=== PATIENT | female | born 1950 | race Caucasian/White ===

== ENCOUNTER 2022-12-12 06:12 | Inpatient (IN) | payer MEDICARE ==
[2022-12-07 11:41] LABS: Basophils # (auto) 0 10 ^3/uL (0-0.2); Basophils % (auto) 0.7 % (0.0-2.0); Eosinophils # (auto) 0.4 10 ^3/uL (0-0.8); Eosinophils % (auto) 5.8 % (0.0-7.0); Hematocrit 41.8 % (36.0-46.0); Hemoglobin 13.7 g/dL (12.2-16.2); Lymphocytes # (auto) 2.6 10 ^3/uL (0.4-5.4); Lymphocytes % (auto) 39.6 % (10.0-50.0); Mean Corpuscular Hgb Conc. 32.7 g/dL (32.0-36.0); Mean Corpuscular Volume 94.8 fL (80.0-100.0); Monocytes # (auto) 0.7 10 ^3/uL (0-1.3); Monocytes % (auto) 10.1 % (0.0-12.0); Neutrophils # (auto) 2.9 10 ^3/uL (1.6-8.6); Neutrophils % (auto) 43.8 % (37.0-80.0); Nucleated Red Blood Cells % 0.1 %; Red Blood Cells 4.41 10^6/uL (4.0-5.20); Red Cell Distribution Width 14.3 % (11.8-14.3); White Blood Cell 6.5 10^3/uL (4.4-10.8)
[2022-12-07 11:48] LABS: Urine Bacteria FEW /hpf (None Seen); Urine Blood Negative /uL (Negative); Urine Clarity Clear (Clear); Urine Color Colorless (Yellow); Urine Protein, UAD Negative (Negative); Urine Specific Gravity 1.014 (1.001-1.035); Urine Urobilinogen Normal (Negative); Urine WBC 10 /hpf (0 - 5); Urine pH 5.5 (5.0-8.0)
[2022-12-07 11:57] LABS: INR 1.03 (0.9-1.15); Partial Thromboplastin Time 27.5 SEC (24.5-34.5); Prothrombin Time 10.8 sec (9.3-11.8)
[2022-12-07 12:39] LABS: Alanine Aminotransferase 36 U/L (7-40); Albumin 4.5 g/dL (3.2-4.8); Alkaline Phosphatase 79 U/L (46-116); Anion Gap 7.3 (5-15); Aspartate Aminotransferase 26 U/L (13-40); BUN/Creatinine Ratio 18.6 (10.0-20.0); Blood Urea Nitrogen 19 mg/dL (9-23); Calcium 9.8 mg/dL (8.5-10.1); Carbon Dioxide 27.7 mmol/L (20-30); Chloride 105 mmol/L (98-107); Glucose 104 mg/dL (74-106); Potassium 4.2 mmol/L (3.5-5.1); Sodium 140 mmol/L (136-145)
[2022-12-07 12:40] LABS: Bilirubin, Total 0.5 mg/dL (0.2-1.0); Total Protein 7.2 g/dL (5.7-8.2)
[~2022-12-12] VITALS: Ht 165.1 cm; Wt 116.3 kg
[~2022-12-12 06:12] MED LIST: ALL100T PO; ASPI1TAB20 PO; ATOR10TA52 PO; CHOL100067 PO; LOSA100T25 PO; MAGN400T40 OR; METO-159 PO; OMEP20TA PO
[2022-12-12] MEDS ORDERED: ceFAZolin 1GM/50ML 100 ML IV ONE (06:50)
[2022-12-12] MEDS ORDERED: LIDOCAINE 2% (LOCAL ANESTH.) PF 5ml SDV ONE (06:57)
[2022-12-12] MEDS ORDERED: fentaNYL CITRATE 100 MCG/2 ML VL ONE (07:34)
[2022-12-12] MEDS ORDERED: MIDAZOLAM HCL 2MG/2ML 2ml VIAL (1mg/ml) ONE (07:35)
[2022-12-12] MEDS ORDERED: fentaNYL CITRATE 5 ML ONE ×2 (07:43→07:44)
[2022-12-12] MEDS ORDERED: ROCURONIUM 10MG/ML 10ML VIAL IV ONE (08:24)
[2022-12-12] MEDS ORDERED: ACETAMINOPHEN 325 MG TAB PO PRN (09:00)
[2022-12-12] MEDS ORDERED: NITROGLYCERIN 0.4 MG SL TAB SL PRN (09:00)
[2022-12-12] MEDS ORDERED: ONDANSETRON HCL 4 MG/2 ML VIAL IV PRN ×2 (09:00→11:30)
[2022-12-12] MEDS ORDERED: MORPHINE SULFATE INJ 2 MG/ml SYRG IV PRN (09:00)
[2022-12-12] MEDS ORDERED: ePHEDrine SULFATE 50 MG/ML AMP ONE (09:35)
[2022-12-12] MEDS ORDERED: TRANEXAMIC ACID 20 ML ONE (10:54)
[2022-12-12] MEDS ORDERED: HYDROmorphone HCL 2 MG/ML VL/or syr IV PRN ×2 (11:30)
[2022-12-12] MEDS ORDERED: ONDANSETRON HCL 4 MG/2 ML VIAL ONE (11:43)
[2022-12-12] MEDS ORDERED: PROPOFOL 10 MG/ML 20 ML IV ONE (11:43)
[2022-12-12 12:03] VITALS: RESP 18; O2SAT 95
[2022-12-12] MEDS: CYCLOBENZAPRINE HCL 10 MG TAB PO SCH ×2 (12:55→21:20)
[2022-12-12] MEDS: D5W/SOD CHLO 0.9% 1,000 ML IV SCH (14:00)
[2022-12-12] MEDS: ceFAZolin 1GM/50ML 50 ML IV SCH ×2 (15:30→17:36)
[2022-12-12] MEDS ORDERED: LOSARTAN POTASSIUM 50 MG TAB PO ONE (15:45)
[2022-12-12] MEDS: DOCUSATE SOD 100 MG CAP PO SCH ×2 (17:38→21:21)
[2022-12-12 20:00] VITALS: BP 146/83; PULSE 105; PULSE 106; RESP 16; TEMP 98.3; O2SAT 96
[2022-12-12] MEDS: METOPROLOL TARTRATE 25 MG TAB PO SCH (21:20)
[2022-12-12 22:00] VITALS: BP 146/83; PULSE 105; RESP 16; TEMP 98.3; O2SAT 96
[2022-12-12] MEDS: HYDROcodone-ACET 10/325MG TAB PO PRN (23:17)
[2022-12-13] VITALS (7 sets, daily range): BP systolic 103–130; BP diastolic 54–78; PULSE 83–124; RESP 16–20; TEMP 97.5–99.1; O2SAT 91–96
[2022-12-13] MEDS ORDERED: HYDROmorphone HCL 2 MG/ML VL/or syr IV ONE
[2022-12-13] MEDS: D5W/SOD CHLO 0.9% 1,000 ML IV SCH ×3 (02:05→11:59)
[2022-12-13] MEDS: HYDROcodone-ACET 10/325MG TAB PO PRN ×2 (05:25→21:23)
[2022-12-13] MEDS: CYCLOBENZAPRINE HCL 10 MG TAB PO SCH ×3 (05:25→21:19)
[2022-12-13] MEDS: DOCUSATE SOD 100 MG CAP PO SCH ×2 (09:06→21:19)
[2022-12-13] MEDS: METOPROLOL TARTRATE 25 MG TAB PO SCH ×2 (09:06→21:19)
[2022-12-13] MEDS: FAMOTIDINE (10MG/ML) 2ML VL IV SCH (09:09)
[2022-12-13] MEDS ORDERED: LOSARTAN POTASSIUM 50 MG TAB PO SCH (10:00)
[2022-12-13] MEDS: MORPHINE SULFATE INJ 2 MG/ml SYRG IV PRN (11:57)
[2022-12-13 12:29] LABS: Chloride 106 mmol/L (98-107); Hematocrit 36.4 % (36.0-46.0); Hemoglobin 11.9 g/dL (12.2-16.2); Mean Corpuscular Hemoglobin 31.8 pg (28.0-32.0); Mean Corpuscular Hgb Conc. 32.8 g/dL (32.0-36.0); Mean Corpuscular Volume 96.8 fL (80.0-100.0); Red Blood Cells 3.76 10^6/uL (4.0-5.20); Red Cell Distribution Width 14.8 % (11.8-14.3); Sodium 138 mmol/L (136-145); White Blood Cell 9.4 10^3/uL (4.4-10.8)
[2022-12-13 12:30] LABS: Anion Gap 5.1 (5-15); Carbon Dioxide 26.9 mmol/L (20-30)
[2022-12-13 12:31] LABS: Calcium 8.8 mg/dL (8.5-10.1)
[2022-12-13 12:35] LABS: Glucose 133 mg/dL (74-106)
[2022-12-13 12:36] LABS: BUN/Creatinine Ratio 17.4 (10.0-20.0); Blood Urea Nitrogen 16 mg/dL (9-23)
[2022-12-13 12:45] LABS: Basophils % (manual) 0 (0.0-2.0); Blast Cells 0; Metamyelocytes % 0; Myelocytes % 0; Promyelocytes % 0; Reactive Lymphocytes 0
[2022-12-13 13:08] LABS: Band Neutrophils % (manual) 2; Eosinophils % (manual) 2 (0-7); Lymphocytes % (manual) 26 (10.0-50.0); Monocytes % (manual) 5 (0-12)
[2022-12-13 13:10] LABS: Platelet Estimate Adequate
[2022-12-14] VITALS (8 sets, daily range): BP systolic 98–130; BP diastolic 41–78; PULSE 89–124; RESP 18–22; TEMP 97.5–99; O2SAT 90–98
[2022-12-14] MEDS: D5W/SOD CHLO 0.9% 1,000 ML IV SCH ×2 (01:28→10:33)
[2022-12-14] MEDS: CYCLOBENZAPRINE HCL 10 MG TAB PO SCH ×3 (06:37→21:03)
[2022-12-14] MEDS: FAMOTIDINE (10MG/ML) 2ML VL IV SCH (10:07)
[2022-12-14] MEDS: DOCUSATE SOD 100 MG CAP PO SCH ×2 (10:07→21:03)
[2022-12-14] MEDS: METOPROLOL TARTRATE 25 MG TAB PO SCH (10:12)
[2022-12-14] MEDS ORDERED: ALBUTEROL SULF 2.5 MG/0.5ML(0.5%) NEB SOLN NEB PRN (10:30)
[2022-12-14] MEDS: Ensure HIGH Protein Chocolate 8oz Bottle PO SCH ×2 (12:26→18:13)
[2022-12-14] MEDS: MORPHINE SULFATE INJ 2 MG/ml SYRG IV PRN (12:43)
[2022-12-14] MEDS: HYDROcodone-ACET 10/325MG TAB PO PRN (20:09)
[2022-12-15 05:00] VITALS: BP 127/67; PULSE 107; RESP 20; TEMP 98.7; O2SAT 97
[2022-12-15] MEDS: CYCLOBENZAPRINE HCL 10 MG TAB PO SCH ×2 (06:06→14:31)
[2022-12-15] MEDS: HYDROcodone-ACET 10/325MG TAB PO PRN (06:09)
[2022-12-15 06:18] LABS: Chloride 105 mmol/L (98-107); Potassium 3.9 mmol/L (3.5-5.1); Sodium 139 mmol/L (136-145)
[2022-12-15 06:19] LABS: Anion Gap 8.8 (5-15); Carbon Dioxide 25.2 mmol/L (20-30)
[2022-12-15 06:20] LABS: Calcium 9.1 mg/dL (8.5-10.1)
[2022-12-15 06:24] LABS: Glucose 108 mg/dL (74-106)
[2022-12-15 06:25] LABS: BUN/Creatinine Ratio 11.7 (10.0-20.0); Blood Urea Nitrogen 9 mg/dL (9-23)
[2022-12-15 07:22] LABS: Basophils # (auto) 0 10 ^3/uL (0-0.2); Basophils % (auto) 0.5 % (0.0-2.0); Eosinophils # (auto) 0.1 10 ^3/uL (0-0.8); Eosinophils % (auto) 1.8 % (0.0-7.0); Hemoglobin 17.2 g/dL (12.2-16.2); Lymphocytes # (auto) 1.1 10 ^3/uL (0.4-5.4); Lymphocytes % (auto) 22.3 % (10.0-50.0); Mean Corpuscular Hemoglobin 30.5 pg (28.0-32.0); Mean Corpuscular Hgb Conc. 31.8 g/dL (32.0-36.0); Monocytes # (auto) 0.6 10 ^3/uL (0-1.3); Neutrophils # (auto) 3.2 10 ^3/uL (1.6-8.6); Neutrophils % (auto) 64.4 % (37.0-80.0); Red Blood Cells 5.63 10^6/uL (4.0-5.20); Red Cell Distribution Width 14.5 % (11.8-14.3)
[2022-12-15 08:00] VITALS: BP 130/78; PULSE 105; PULSE 124; PULSE 82; RESP 19; TEMP 97.5
[2022-12-15] MEDS: Ensure HIGH Protein Chocolate 8oz Bottle PO SCH ×2 (08:08→11:59)
[2022-12-15 09:01] VITALS: BP 116/71; PULSE 105; RESP 18; TEMP 98.1; O2SAT 89
[2022-12-15 09:55] VITALS: O2SAT 97
[2022-12-15] MEDS: FAMOTIDINE (10MG/ML) 2ML VL IV SCH (10:20)
[2022-12-15] MEDS: DOCUSATE SOD 100 MG CAP PO SCH (10:20)
[2022-12-15 12:19] LABS: Platelet Estimate Decreased
[2022-12-15 12:53] VITALS: BP 112/63; PULSE 98; RESP 18; TEMP 98.2; O2SAT 90
[2022-12-15 13:28] VITALS: BP 102/57; PULSE 93; TEMP 36.8
== END 2022-12-15 16:39 | disposition home or self-care (01) | DRG 454 ==
LOC: SUR 06:12 → TELE 08:55 → TELE-WESTW 17:07
PROVIDERS: ADMIT Orthopaedic Surgery; ATTEND Internal Medicine
PROC: 0SG0071 Fusion of Lumbar Vertebral Joint with Autologous Tissue Substitute, Posterior Approach, Posterior Column, Open Approach (ICD-10-PCS; 2022-12-12)
PROC: 01NB0ZZ Release Lumbar Nerve, Open Approach (ICD-10-PCS; 2022-12-12)
PROC: 00NX0ZZ Release Thoracic Spinal Cord, Open Approach (ICD-10-PCS; 2022-12-12)
PROC: 4A11X4G Monitoring of Peripheral Nervous Electrical Activity, Intraoperative, External Approach (ICD-10-PCS; 2022-12-12)
PROC: 0SG00AJ Fusion of Lumbar Vertebral Joint with Interbody Fusion Device, Posterior Approach, Anterior Column, Open Approach (ICD-10-PCS; principal; 2022-12-12 08:50)
DX: M48.062 Spinal stenosis, lumbar region with neurogenic claudication (principal); Z68.41 Body mass index [BMI] 40.0-44.9, adult; M10.9 Gout, unspecified; I10 Essential (primary) hypertension; E78.5 Hyperlipidemia, unspecified; E66.9 Obesity, unspecified; M43.16 Spondylolisthesis, lumbar region; M54.16 Radiculopathy, lumbar region; Z88.6 Allergy status to analgesic agent
CPT/HCPCS: 36415; 72100; 76000; 80048; 80053; 81001; 85007; 85025; 85027; 85610; 85730; 86850; 86900; 86901; 93926; 93971; 94640; 97110; 97116; 97163; 97530; G0378; J0690; J2001; J2250; J2405; J2704; J3490; J7042

== ENCOUNTER 2024-07-08 08:34 | Inpatient (IN) | payer MEDICARE ==
[2024-07-04 10:50] LABS: Urine Bacteria None Seen /hpf (None Seen)
[2024-07-04 11:17] LABS: Urine Blood Negative /uL (Negative); Urine Clarity Clear (Clear); Urine Color Light-Yellow (Yellow); Urine Protein, UAD Negative (Negative); Urine Squamous Epithelial Cell FEW /hpf (<5); Urine Urobilinogen Normal (Negative); Urine WBC 16 /HPF (0-5); Urine pH 6.5 (5.0-9.0)
[2024-07-04 11:29] LABS: Basophils # (auto) 0.1 10 ^3/uL (0-0.2); Eosinophils # (auto) 0.4 10 ^3/uL (0-0.8); Eosinophils % (auto) 6.3 % (0.0-7.0); Hematocrit 43.3 % (36.0-46.0); Hemoglobin 14.1 g/dL (12.2-16.2); Lymphocytes # (auto) 2.4 10 ^3/uL (0.4-5.4); Lymphocytes % (auto) 37.2 % (10.0-50.0); Mean Corpuscular Hemoglobin 31.8 pg (28.0-32.0); Mean Corpuscular Hgb Conc. 32.4 g/dL (32.0-36.0); Mean Corpuscular Volume 98.2 fL (80.0-100.0); Monocytes # (auto) 0.6 10 ^3/uL (0-1.3); Monocytes % (auto) 8.8 % (0.0-12.0); Neutrophils # (auto) 3.1 10 ^3/uL (1.6-8.6); Neutrophils % (auto) 46.7 % (37.0-80.0); Nucleated Red Blood Cells % 0.1 %; Platelet Count (auto) 212 10^3/uL (140-450); Red Blood Cells 4.41 10^6/uL (4.0-5.20); Red Cell Distribution Width 15.3 % (11.8-14.3); White Blood Cell 6.6 10^3/uL (4.4-10.8)
[2024-07-04 11:33] LABS: INR 1.03 (0.9-1.15); Partial Thromboplastin Time 26.6 SEC (24.5-34.5); Prothrombin Time 10.9 sec (9.3-11.8)
[2024-07-04 12:19] LABS: Albumin 4.7 g/dL (3.2-4.8); Alkaline Phosphatase 86 U/L (46-116); Anion Gap 10 (5-15); Aspartate Aminotransferase 35 U/L (13-40); Bilirubin, Total 0.5 mg/dL (0.2-1.0); Blood Urea Nitrogen 19 mg/dL (9-23); Carbon Dioxide 28 mmol/L (20-31); Chloride 105 mmol/L (98-107); Glucose 104 mg/dL (74-106); Potassium 4.3 mmol/L (3.5-5.1); Sodium 143 mmol/L (136-145); Total Protein 7.3 g/dL (5.7-8.2)
[2024-07-04 12:22] LABS: Alanine Aminotransferase 44 U/L (7-40); Calcium 10.4 mg/dL (8.7-10.4)
[~2024-07-08] VITALS: Ht 170.2 cm; Wt 101.2 kg
[~2024-07-08 08:34] MED LIST changes: -ALL100T PO; +ALL300T PO; +ASCOCRY2 OR; +GABA-1250 PO; +METH50006 SL; -METO-159 PO; +METO-289 PO; +METO1TAB9 PO
[2024-07-08] MEDS ORDERED: ceFAZolin 2 GM/D5W100ml 100 ML IV ONE (08:46)
[2024-07-08] MEDS ORDERED: DexAMETHasone SOD PHOS 10MG/1ML VIAL INJ ONE (10:51)
[2024-07-08] MEDS ORDERED: GLYCOPYRROLATE 0.2 MG/ML 1ML VIAL ONE (10:51)
[2024-07-08] MEDS ORDERED: ONDANSETRON HCL 4 MG/2 ML VIAL ONE (10:51)
[2024-07-08] MEDS ORDERED: ROCURONIUM 10MG/ML 10ML VIAL IV ONE (10:52)
[2024-07-08] MEDS ORDERED: fentaNYL CITRATE 100 MCG/2 ML VL ONE (10:52)
[2024-07-08] MEDS ORDERED: KETAMINE 50mg/ML 1ml syringe ONE ×2 (10:52→13:44)
[2024-07-08] MEDS ORDERED: PROPOFOL 10 MG/ML 20 ML IV ONE ×2 (10:52→13:50)
[2024-07-08] MEDS ORDERED: SODIUM CHLORIDE LOCK 10 ML ONE ×3 (10:52→13:44)
--- NOTE | 2024-07-08 11:13 | DVHHP2 ---
"Admitting Diagnosis: cervical spinal stenosis with severe radicular pain and progressive neuro deficit History of Present Illness Home Meds Reported Medications Ascorbic Acid (Celia-C) Cry, 1000 OR, CRY 07/01/24 Mecobalamin (B12) 5,000 Mcg Sub, 5000 MCG SL DAILY, INJ 07/01/24 Gabapentin (Gabapentin) 300 Mg Cap, 300 MG PO BID for 30 Days, MG 07/01/24 Metoprolol Succinate (Metoprolol Succinate Er) 50 Mg Tab, 50 MG PO HS for 30 Days, MG 07/01/24 Metoprolol Succinate (Metoprolol Succinate Er) 100 Mg Tab, 100 MG PO QAM, TAB 07/01/24 Allopurinol (ZYLOPRIM TABLET) 300 Mg Tb, 300 MG PO, TAB 07/01/24 Cholecalciferol (D3) 250 Mcg Cap, 125 MCG PO, CAP 12/07/22 Magnesium Oxide (MAGNESIUM OXIDE) 400 Mg Tab, 400 MG OR DAILY, TAB 12/07/22 Aspirin (Aspir-81) 81 Mg Tab, 81 MG PO DAILY, TAB 12/07/22 Atorvastatin Calcium (ATORVASTATIN CALCIUM) 10 Mg Tab, 10 MG PO DAILY, TAB 12/07/22 Omeprazole (Gnp Omeprazole) 20 Mg Tab, 40 MG PO DAILY, TAB 12/07/22 Losartan Potassium & Hydrochlo (Hyzaar) 1 Tab Tab, 1 TAB PO DAILY, TAB 12/07/22 Discontinued Reported Medications Allopurinol (ZYLOPRIM TABLET) 100 Mg Tb, 100 MG PO DAILY, TAB 12/07/22 Timing/Duration of Neck Pain: Changing over time Quality of Neck Pain: Aching, Burning, Cramping Neck Pain Radiation: Upper extremity Method of Injury/Prior Factors: Unknown Modifying Factors for Neck Geovanna: None Associated Symptoms of Neck Pa: Muscle spasms, Numbness in upper extremi, Numbness in fingers, Tingling in upper extremi, Tingling in fingers, Sensory loss, Motor loss Past Medical History Patient Family History: Diabetes mellitus G8 MOTHER Review of Systems Constitutional: No symptom reported Ears, Nose, & Throat: No symptom reported Eyes: No symptom reported Pulmonary/Respiratory: No symptom reported Cardiovascular: No symptom reported Gastrointestinal: No symptom reported Genitourinary: No symptom reported Musculoskeletal: Neck pain, Arm pain Skin: No symptom reported Psychiatric: No symptom reported Endocrine: No symptom reported Hemotologic/Lymphatic: No symptom reported H&P Exam Vital Signs Vital Signs Date Time Temp Pulse Resp B/P (MAP) Pulse Ox O2 Delivery O2 Flow Rate FiO2 07/08/24 08:44 97.1 88 20 148/88 (108) 94 97.1 General Appeara: Well developed, Well nourished, Normal Appearance Head Exam: Normal inspection Neck Exam: Normal inspection, Non-tender, Normal alignment Eye Exam: bilateral eye Normal inspection, bilateral eye PERRL, bilateral eye EOMI Ear Exam: bilateral ear Auricle normal, bilateral ear Canal normal, bilateral ear TM normal Nasal Exam: Normal inspection Mouth: Normal Inspection Pulmonary/Respiratory: Normal inspection, Normal breath sounds, Chest non- tender, Lungs clear Cardiovascular/Chest: Normal inspection, Regular rate, Normal Rhythm Abdominal Exam: Normal bowel sounds, Soft, No tenderness, No hepatospenomegaly, No masses Rectal Exam: Deferred Back Exam: Normal inspection Pelvic Exam: Not done Male Genital Exam: Not done Shoulder Exam: Normal inspection, Non-tender, Normal ROM Elbow/Forearm Exam: Normal inspection, Non-tender, Normal ROM Wrist Exam: Normal inspection, Non-tender, Normal ROM Hand Exam: Normal inspection Hip exam: Normal inspection, Non-tender, Normal range of motion Legs: bilateral leg non-tender, bilateral leg normal inspection, bilateral leg normal range of motion, bilateral leg no evidence of injury Knees: bilateral knee non-tender, bilateral knee normal inspection, bilateral knee normal range of motion, bilateral knee no evidence of injury Ankle Exam: bilateral ankle Normal inspection, bilateral ankle Non-tender, bila teral ankle Normal range of motion, bilateral ankle No evidence of injury Foot: bilateral foot non-tender, bilateral foot normal inspection, bilateral foot normal range of motion, bilateral foot no evidence of injury Tendon/ Neuro: Motor deficit, Sensory deficit ASSEMBLER Exam: Normal hearing, Normal speech, PERRL Motor/Sensory: Weak motor strength RUE, Weak motor strength LUE, Weak motor strength RLE, Weak motor strength LLE Appearance: Appropriate appearance Eye contact/ Speech: Cooperative Thoughts/Psych: Normal thought pattern Coordination/Gait: Abnormal gait Skin Exam: Normal inspection, Normal color, Warm/dry Lymphatic: Normal inspection Labs/Xrays Radiology Report Patient Details Exam Details SIEGEL ADRIAN MR CERVICAL SPINE W/O Date of Gender Exam Date FEMALE 02/26/2022 [id number] [facility] Rec # Ordering Provider Interpreting Provider [id number] [facility] CLINICAL HISTORY: 723.1 Comparison: MR LUMBAR SPINE WO on DOS: 11/08/23 Technique: Multi planar, multi sequence MR images of the cervical spine without intravenous contrast. FINDINGS: The cervical spinal cord demonstrates normal caliber and signal. The visualized posterior fossa contents appear unremarkable. The craniocervical junction is within normal limits. The vertebral body heights and bone marrow signal are appropriate. There is straightening of the cervical lordosis. There is disc desiccation throughout. There is multilevel disc space narrowing, worse at C5-C6 and C6-C7. At C2-C3 there is bilateral facet arthropathy, [id number]-right. There is no canal or significant foraminal stenosis. At C3-C4 there is posterior disc osteophyte complex and bilateral uncovertebral arthropathy, [id number]- left. There is bilateral facet arthropathy, [id number]-left. There is no significant spinal canal stenosis. There is moderate right neural foraminal stenosis. At C4-C5 there is bilateral facet arthropathy and mild disc bulge. There is no spinal canal or significant foraminal stenosis. At C5-C6 there is posterior disc osteophyte complex and bilateral uncovertebral arthropathy. There is no significant spinal canal stenosis. There is moderate bilateral neural foraminal stenosis, right greater than left. At C6-C7 there is posterior disc osteophyte complex and bilateral uncovertebral arthropathy. There is no significant spinal canal stenosis. There is moderate bilateral neural foraminal stenosis. At C7-T1 there is bilateral facet arthropathy with slight grade 1 anterolisthesis of C7 on T1. There is posterior disc bulge without canal stenosis. There is mild bilateral neural foraminal stenosis. IMPRESSION: [facility] [id number], [address] [place] [address] | Confidential information intended for patient chart only Page 2 of 2 1. Straightening of the cervical spine with multilevel degenerative changes as described by levels above. There is no significant spinal canal stenosis. 2. Moderate bilateral neural foraminal stenosis at C5-C6 and C6-C7. HS:Y Labs Test 07/04/24 10:15 Range/Units White Blood Count 6.6 4.4-10.8 10^3/uL Red Blood Count 4.41 4.0-5.20 10^6/uL Hemoglobin 14.1 12.2-16.2 g/dL Hematocrit 43.3 36.0-46.0 % Mean Corpuscular Volume 98.2 80.0-100.0 fL Mean Corpuscular Hemoglobin 31.8 28.0-32.0 pg Mean Corpuscular Hemoglobin Concent 32.4 32.0-36.0 g/dL Red Cell Distribution Width 15.3 H 11.8-14.3 % Platelet Count 212 140-450 10^3/uL Mean Platelet Volume 9.1 6.9-10.8 fL Neutrophils (%) (Auto) 46.7 37.0-80.0 % Lymphocytes (%) (Auto) 37.2 10.0-50.0 % Monocytes (%) (Auto) 8.8 0.0-12.0 % Eosinophils (%) (Auto) 6.3 0.0-7.0 % Basophils (%) (Auto) 1.0 0.0-2.0 % Neutrophils # (Auto) 3.1 1.6-8.6 10 ^3/uL Lymphocytes # (Auto) 2.4 0.4-5.4 10 ^3/uL Monocytes # (Auto) 0.6 0-1.3 10 ^3/uL Eosinophils # (Auto) 0.4 0-0.8 10 ^3/uL Basophils # (Auto) 0.1 0-0.2 10 ^3/uL Nucleated Red Blood Cells 0.1 % Prothrombin Time 10.9 9.3-11.8 sec Prothrombin Time INR 1.03 0.9-1.15 Activated Partial Thromboplast Time 26.6 24.5-34.5 SEC Urine Color Light-yellow Yellow Urine Clarity Clear Clear Urine pH 6.5 5.0-9.0 Urine Specific [place] 1.020 1.001-1.035 Urine Protein Negative Negative Urine Ketones Negative Negative Urine Blood Negative Negative /uL Urine Nitrite Negative Negative Urine Bilirubin Negative Negative Urine Urobilinogen Normal Negative mg/dL Urine Leukocyte Esterase 2+ Negative /uL Urine RBC <1 0 - 4 /hpf Urine Microscopic WBC 16 H 0-5 /HPF Urine Squamous Epithelial Cells Few <5 /hpf Urine Bacteria None seen None Seen /hpf Urine Glucose Normal Normal mg/dL Sodium Level 143 136-145 mmol/L Potassium Level 4.3 3.5-5.1 mmol/L Chloride Level 105 98-107 mmol/L Carbon Dioxide Level 28 20-31 mmol/L Anion Gap 10 5-15 Blood Urea Nitrogen 19 9-23 mg/dL Creatinine 1.27 H 0.550-1.02 mg/dL Glomerular Filtration Rate Calc 45 >90 mL/min BUN/Creatinine Ratio 15.0 10.0-20.0 Serum Glucose 104 74-106 mg/dL Calcium Level 10.4 8.7-10.4 mg/dL Total Bilirubin 0.5 0.2-1.0 mg/dL Aspartate Amino Transferase (AST) 35 13-40 U/L Alanine Aminotransferase (ALT) 44 H 7-40 U/L Alkaline Phosphatase 86 46-116 U/L Total Protein 7.3 5.7-8.2 g/dL Albumin 4.7 3.2-4.8 g/dL Assessment/Plan Primary Diagnosis cervical spinal stenosis Plan admit for elective spine surgery Plan discussed with: Patient TEMITOPE SHEPARD MD Jul 08, 2024 11:13"
[2024-07-08] MEDS ORDERED: oxyCODONE ER 10 MG TAB PO ONE (11:37)
[2024-07-08] MEDS ORDERED: ACETAMINOPHEN IV 100 ML IV ONE (11:37)
[2024-07-08] MEDS ORDERED: GABAPENTIN 300 MG CAP ONE (11:37)
[2024-07-08] MEDS ORDERED: TRANEXAMIC ACID 20 ML ONE (11:45)
[2024-07-08] MEDS: ACETAMINOPHEN IV 1000 MG/100ML (10MG/ML) IV ONE (11:46)
[2024-07-08] MEDS: oxyCODONE ER 10 MG TAB PO ONE (11:46)
[2024-07-08] MEDS: GABAPENTIN 300 MG CAP PO ONE (11:46)
[2024-07-08] MEDS ORDERED: MAGNESIUM SULFATE 1GM/100ML 100 ML IV ONE (11:58)
[2024-07-08] MEDS ORDERED: LIDOCAINE 4MG/ML IV SOLN 500 ML IV ONE (12:12)
--- NOTE | 2024-07-08 14:35 | DVHOP2 ---
Operative Report - 2 Report Details Date: 07/08/24 Preop Diagnosis: cervical spinal stenosis/degenerative disc disease with severe radiculopathy Postop Diagnosis: same Surgeon: Vernon Villalpando MD Clinical Rn Manager: Santa Drew NP Anesthesiologist: Hannah Gilliam CRNA Anesthesia: General Consent: The patient was informed of the risks and benefits of the procedure. These include but are not limited to complications of anesthesia, postoperative infection, incomplete relief of symptoms, recurrence of symptoms, damage to blood vessels, nerves and tendons, deep venous thrombosis, pulmonary embolism and possible need for repeat surgery in the future. Name of Procedure Performed see detailed note Procedure Details Procedure Details: Pre Op Diagnosis: Cervical Degenerative Disk Disease most severe at C4/5,6/7, 6/7 and Spinal Stenosis Causing incapacitating neck pain, radiculopathy and progressive neurologic deficit Post Op Diagnosis: Cervical Degenerative Disk Disease most severe at c4/5, 5/6, 6/7 and Spinal Stenosis Causing incapacitating neck pain, radiculopathy and progressive neurologic deficit Procedure: Cervical 4 to 5 anterior cervical discectomy with Cervical 4-5 foraminotomies and facetectomies to decompression the spinal canal and Cervical 5 nerve roots Cervical 5 to 6 anterior cervical discectomy with Cervical 5/6 foraminotomies and facetectomies to decompression the spinal canal and Cervical 6 nerve roots Cervical 6 to 7 anterior cervical discectomy with Cervical 6/7 foraminotomies and facetectomies to decompression the spinal canal and Cervical 7 nerve roots Cervical 4-7 anterior cervical Fusion Cervical 4-7 anterior cervical instrumentation with freestanding cages Cervical 4-5 placement of allograft prosthetic device Cervical 5-6 placement of allograft prosthetic device Cervical 6-7 placement of allograft prosthetic device Surgeon: Vernon Villalpando MD Anesthesia: General Assist: Santa Drew NP Fluids and EBL: see anesthesia note Procedure Note: The patient was seen in the Pre-anesthesia Care Unit and the site of the incision was initialed by me with a felt tipped marker. All questions by the patient were answered to the satisfaction of the patient and the chart was reviewed. The patient was taken to the operating room and placed supine on the [facility] top table. General anesthesia was induced. Neuromonitoring leads were placed. A rolled towel was placed between the shoulder blades to hyperextend out the chest which will allow better exposure of the cervical spine. Halter traction to 10 pounds was placed. The arms were padded and adducted to the patients side making sure all pulses in the hands were present. Tape traction was undertaken on the shoulders to give us better radiographic exposure of the distal cervical spine. A gel-pad was placed under the occiput and 5 degrees of extension was placed on the neck without adverse effects to the patient. The anterior neck was prepped and draped. Pre-operative antibiotics were given 30 minutes prior to the start of the proced ure. A c-arm fluoroscope was used to josiah out the incision site. At this time, a time out was taken per usual protocol. Next an incison was made through the skin with a 15 blade scalpel through the subcutaneous tissue down to the platysma. Self-retainers were placed. The platysma was incised along the longitudinal border with a Metzenbaum scissors. Blunt dissection was made through the deep cervical and pre-tracheal fascia taking care to protect the carotid sheath laterally and the Trachea/esophagus medially. The dissection was carried down to the prevertebral fascia. Any crossing vessels were ligated using a vascular clip or coagulated with a bovie. An esophageal retractor was next used to retract the trachea/esophagus and a bent [address] through the anterior annulus of the cervical disk and a lateral C-arm fluoroscopic image was taken to confirm that we were at the correct level. The patient had a large thick neck making the exposure deep and more challenging than average. Next, bovie electrocautery was used to expose the bones of cervical 4,5,6, and 7 and bipolar electrocuatery was used to lift up the Longus Colli and Capitus muscles. Black-Belt Self Retainers were used to retract the longus colli and capitus muscles bilaterally as well as the trachea/esophagus to the right and the carotid sheath to the left. Smooth thin self raining retractors were placed proximally and distally and a needle was placed again in the anterior annulus of the disk and an image taken to confirm the correct level. The bleeding was more excessive than average due tot he requirement to remove bone spurs At this point, an 11 blade scalpel incised the anterior annulus of the first of the 3 levels. Next, straight and curved curettes removed the remainder of the disks all the way down to the posterior longitudinal ligament. Carefully, a Bob carrillo one rongeur inscised the posterior longitudinal ligament at the lateral end of the cervical 4/5 an 5/6 and 6/7 disks and using a micro, blunt tip nerve hook to separate the posterior longitudinal ligament from the dura, alternating 1 mm and 2 mm Kerison rongeurs removed the posterior longitudinal ligament. Next, Kerison 1mm and 2 mm rongeurs were alternated to get under the uncinate processes and undercut them to perform foraminotomies and factectomies at these levels to decompress the central canal and the cervical 5,6 and 7 nerve roots respectively. Next the c-arm fluoroscope was wheeled into the field and a lateral image was obtained. Increasing size graft trials were used starting at a 5 mm thick size until the proper tension in the disk space and height bahai obtained. Next we placed the free standing inter body devices at feliz of the 3 levels respectively. The sizes were tailored to make sure proper tension was restored in the ligaments without over tensioning. Satisfactory placement was confirmed in the AP and lateral views using a C-arm fluoroscope. Copious irrigation of the wound with sterile saline and all bleeding was controlled before closure initiated. At this point, a 10 [place] Islander round Ivan Drain was place deep to the Platysma muscle and the Platysma was approximated with one interrupted 0-Vicryl suture. The subcutaneous tissue was closed with interrupted 2-0 vicryl sutures and the skin was closed with yunier. Sterile dressings were placed and a cervical collar placed, the patient extubated, transferred to the stretcher and taken to the Recovery Room in unremarkable condition. Other Notes:Please note that the patient had a large fatty layer in the neck making the exposure very deep. There were multiple crossing veins in the pretracheal fascia that needed to be tied off with 2-0 silk. Condition Stable Disposition Still a Patient VERNON VILLALPANDO MD Jul 08, 2024 14:35
[2024-07-08 14:48] VITALS: PULSE 86; RESP 11; O2SAT 98
--- NOTE | 2024-07-08 14:50 | DVH ---
C-ARM FLUOROSCOPY: PROCEDURE: c4-c7 fusion FLUOROSCOPY TIME: 58.8 sec DAP: 24 mgy FINDINGS: Spot intraoperative C arm radiographs demonstrating c4-c7 fusion. IMPRESSION: Please refer to surgical report for detailed findings.
[2024-07-08] MEDS: hydrALAZINE HCL 20 MG/ML VL IV ONE ×2 (14:55→15:05)
[2024-07-08] MEDS ORDERED: hydrALAZINE HCL 20 MG/ML VL ONE (15:00)
[2024-07-08] MEDS ORDERED: HYDROmorphone HCL 2 MG/ML VL/or syr IV PRN (15:00)
[2024-07-08] MEDS ORDERED: NALOXONE HCL 0.4 MG/ML VIAL IV PRN (15:00)
[2024-07-08] MEDS ORDERED: ePHEDrine SULFATE 50 MG/ML AMP IV PRN (15:00)
[2024-07-08] MEDS ORDERED: fentaNYL CITRATE 100 MCG/2 ML VL IV PRN (15:00)
[2024-07-08] MEDS ORDERED: hydrALAZINE HCL 20 MG/ML VL IV PRN (15:00)
[2024-07-08] MEDS ORDERED: FLUMAZENIL 0.1 MG/ML INJ 10ML MDV IV PRN (15:00)
[2024-07-08] MEDS ORDERED: ONDANSETRON HCL 4 MG/2 ML VIAL IV PRN (15:00)
[2024-07-08] MEDS ORDERED: MORPHINE SULFATE INJ 2 MG/ml SYRG IV PRN (16:45)
[2024-07-08] MEDS ORDERED: NITROGLYCERIN 0.4 MG SL TAB SL PRN (16:45)
[2024-07-08 17:00] VITALS: BP 155/74; PULSE 90; RESP 18; TEMP 97.6; O2SAT 91
[2024-07-08 20:00] VITALS: PULSE 84; PULSE 86; RESP 18; O2SAT 92
[2024-07-08 21:00] VITALS: BP 157/70; PULSE 86; RESP 18; TEMP 98; O2SAT 92
[2024-07-08] MEDS: oxyCODONE HCL 5MG TAB PO PRN (22:15)
[2024-07-09] VITALS (8 sets, daily range): BP systolic 129–156; BP diastolic 60–73; PULSE 75–105; RESP 17–20; TEMP 97.4–97.8; O2SAT 88–94
--- NOTE | 2024-07-09 07:08 | DVHPN2 ---
Progress Note - Surgical Date Seen: Jul 09, 2024 Post op day Post op day: 1 Subjective Patient reports: No new complaints, Feels better, Other (Patient doing surprisingly well considering she has only had one oral pain medication since surgery.) Review of Systems: HEENT:Normal, CVS:Normal, RESPIRATORY:Normal, GI:Normal, :Normal, MSK:Normal, NEURO:Normal (Patient states she is having some occipital pain however that may be due to the harvesting system used in surgery to maintain immobilization admission should get better in time) Objective Vital signs Vital Sign Date Time Temp Pulse Resp B/P (MAP) Pulse Ox O2 Delivery O2 Flow Rate FiO2 07/09/24 05:00 97.8 82 18 130/60 (83) 94 97.8 07/08/24 20:00 Nasal Cannula* 1 24 Total Intake and Output 07/08/24 07/08/24 07/09/24 15:00 23:00 07:00 Intake Total 1010 ml 0 ml 300 ml Output Total 10 ml Balance 1000 ml 0 ml 300 ml Medications Current Medications Medications Dose Ordered Sig/Suzette Route Start Time Stop Time Status Last Admin Dose Admin Oxycodone HCl 10 mg ONCE PRN PO 07/08/24 15:00 07/08/24 22:15 10 MG Nitroglycerin 0.4 mg Q5MINP PRN SL 07/08/24 16:45 Morphine Sulfate 2 mg Q30M PRN IV 07/08/24 16:45 Laboratory Laboratory Tests 07/04/24 10:15 Test 07/04/24 10:15 Range/Units Serum Glucose 104 74-106 mg/dL Examination: GENERAL:Normal, HEENT:Normal, NECK:Normal, LUNGS:Normal, CVS:Normal, ABDOMEN:Normal, MSK:Normal (Patient is demonstrating normal range of motion), SKIN:Normal (In her neck wound is well approximated with yunier, drain is intact, it was removed with scant drainage. There may be residual drainage for the next 2-3 days patient verbalized understanding), NEURO:Normal (Patient moving bilateral upper extremities independently with good strength), :Normal Problem List/Assessment/Plan Problems: (1) Muscle spasms of neck (2) Postoperative pain after spinal surgery Assessment and Plan Disposition: -Pending -Discharge RX: Pending -Follow up appointment: with Dr Villalpando , keep your appointment as scheduled [id number] [place] [address] -Pain: - IV pain meds post op day 1, with PO supplementation, goal is to progress weaning off IV medications and control pain with PO only. morphine 1mg q 4 hours (PAIN 7-10) - P.O. analgesics:Tylenol 650MG (PAIN 1-3) [place] 10/325 mg (PAIN 4-6) - Muscle relaxers scheduled administration. This is a beneficial medications for the incisional pain as it is mostly related to muscle spasms. Flexeril 10 mg TID - Cepacol throat lozenges as needed for sore throat -Antibiotics Operative recommendations: -Postoperative dose:-Post operative antibiotics cefazolin 1 g IV piggyback every 8 hours x 48 hours total of 6 doses -DVT PPX: -Hold all chemical DVT/ blood thinners for 14 days postoperatively -use mechanical DVT PPX such as SCD's, ambulation -Activity: -Pending PT evaluation and patients progression -Sit at side of bed for meals -Goal: Ambulate independently and safely (may use assistive devices if needed) -Brace: - [place] collar for comfort, -Medical Therapy goals: -Afebrile- Patient may develop a expected post operative fever by day 2-3, this may not be accompanied with a elevation in WBC. if fever develops: Acetaminophen for fever. Albuterol nebulizer Tx every 12 hours for 24 hours to facilitate adequate lung expansion and prevent development of atelectasis. -Euglycemic: bloods sugars under 130mmol/L for optimal healing -Normotensive: Avoid events of hypertension. This helps to keep post operative healing intact and avoids destabilization of beneficial hemostatic coagulation. Drains -Bulb drains: record output and characteristics of the drainage EVERY 6 HOURS- if there is no output indicate this by documenting 0ml output in note.. These will be to thumbprint compression unless otherwise ordered. Record output as well as amount in a note at least every 6 houtrs- more if indicated. Wound drainage is described by type, color, amount, and odor. Drainage can be 1 serous: Clear and thin, may be present in healing healthy wound. 2 serosanguineous containing blood may also be present and healthy healing wound 3. Sanguinous primarily blood 4. Purulent this is thick, white, and pus like. It may be indicated to give of a infection and should constitute a call to the provider immediately with the plan that the sample should be cultured. -Keenan: -DC in OR -Dressings -Anterior cervical patients: Initial surgical dressing may be reinforced if needed. If there is excessive bleeding, leaking, drainage in the bulb drain notify provider -Bowel management: -Colace 100mg bid -Diet: -Clear liquid diet and advance as patient tolerates within dietary limitations ( example: diabetic, Cardiac) -Incentive Spirometer: -10 x hour while awake, RN please educate and observe repeat demonstration, have IS at bedside POD #1 -X-rays: - none indicated at this time -Consults: -Physical Therapy evaluation, treatment recommendations, and discharge recommendations Call with questions Marquis Drew ACNP- Orthopaedic Spine Surgery nurse practitioner For Dr Reid Villalpando Patient was examined, chart reviewed, labs evaluated, and diagnostic studies and findings analyzed. Case was discussed with Dr. Vernon Villalpando who formulated the plan of care. Plan discussed with Plan discussed with: Patient, Other (Melanie extension [phone]) Visit Coding Surgery Date of Service if different f: Jul 09, 2024 Billing Provider: BRONSON DREW NP Surgery Visit Codes: NOT BILLABLE BRONSNO DREW NP Jul 09, 2024 07:08
[2024-07-09 10:49] LABS: Chloride 102 mmol/L (98-107); Potassium 4.5 mmol/L (3.5-5.1); Sodium 137 mmol/L (136-145)
[2024-07-09 10:50] LABS: Anion Gap 9 (5-15); Carbon Dioxide 26 mmol/L (20-31)
[2024-07-09 10:55] LABS: BUN/Creatinine Ratio 19.6 (10.0-20.0); Blood Urea Nitrogen 19 mg/dL (9-23)
[2024-07-09 10:56] LABS: Glucose 132 mg/dL (74-106)
[2024-07-09] MEDS ORDERED: OXY5T PO (13:37)
[2024-07-09] MEDS ORDERED: CYCL-611 PO (13:37)
--- NOTE | 2024-07-09 13:43 | DVHDS2 ---
ASSESSMENT ASSESSMENT Hospital Course The patient arrived for a elective spine surgery with Dr. VILLALPANDO. Surgery went as planned with no complications. After a short stay in the PACU patient was admitted to the hospital for postoperative care and pain management over the course of 1 postoperative days the patient was able to tolerate a diet, ambulate independently, the pain has been managed with oral analgesics. The surgical site is well-approximated with yunier some residual drainage continues from drain insertion sites after removal, however it is manageable with daily wound care and dressing changes. Some improvement to preoperative symptoms of extremities, strength and motion. There is new post operative pain that is localized to the surgical site. The patient will follow-up with Dr. Villalpando for wound check and suture check or staple removal. The patient may use Lea J collar /TLSO / Soft collar for comfort and while mobilizing. You may shower and let the water run over your neck wound however you must pat it dry with sterile 4x4s gauze. Please do not use regular household towels. Keep your incision covered when you are out of your house or when you are wearing clothing that rub on your incision. He will also do not want to have a seatbelt rubbing on your incision. If you are at home and you have clothing that does not contact your incision you may leave it open to air. You may have some residual drainage from the drain site for the next 2-3 days which is normal it should be a very light pink or cathy color fluid. If it changes or becomes bright red please call 911. Assessment same Problems: (1) Cervical stenosis of spinal canal Assessments: Resolved with spine surgery which has been completed (2) Muscle spasms of neck Assessments: Prescription for muscle relaxers-acute phase of healing (3) Postoperative pain after spinal surgery Assessments: Prescription for oral analgesia-acute phase of healing BRONSON VALDEZ NP Jul 09, 2024 13:43
[2024-07-09] MEDS: CYCLOBENZAPRINE HCL 10 MG TAB PO SCH (14:08)
--- NOTE | 2024-07-09 16:40 | DVHHPRES ---
History of Present Illness Resident Creating Document: WADE ALFLEUR RESIDENT History of Present Illness This is a 74-year-old female who come in for radicular pain. She has a past medical history relevant for hypertension, gout, dyslipidemia, GERD. She stated that for the last six months she has been experiencing worsening radicular pain, she states having a history of cervical spinal stenosis with severe radicular pain and progressive neuro deficit. She was seen by Dr. Villalpando whom scheduled her for an elective surgery for her cervical spine. On my initial assessment, patient was seen and examined at bedside. Currently states feeling well, denies any significant shortness of breath, chest pain, abdominal pain, dysuria, nausea, vomiting, diarrhea, constipation, dizziness, lightheadedness. Currently tolerating diet. Patient underwent cervical spine surgery today, she just states having soreness on the anterior neck, she also states having some pain on swallowing. However patient did tolerated the diet well and she was progressed to regular diet. Patient is going to have physical therapy today, and we will continue to monitor her. Smoke: No ALCOHOL: none Drugs: None Lives: with Family Review of Systems Review of Systems Constitutional: Patient denies fevers, chills, sweats and weight changes. Eyes: Patient denies any visual symptoms. Ears, Nose, and Throat: No difficulties with hearing. No symptoms of rhinitis or sore throat. Cardiovascular: Patient denies chest pains, palpitations, orthopnea and paroxysmal nocturnal dyspnea. Respiratory: No dyspnea on exertion, no wheezing or cough. GI: No nausea, vomiting, diarrhea, constipation, abdominal pain, hematochezia or melena. Dysphagia : No urinary hesitancy or dribbling. No nocturia or urinary frequency. No abnormal urethral discharge. Musculoskeletal: No myalgias, arthralgias or edema. Neurologic: No chronic headaches, no seizures. Patient denies numbness, tingling or weakness. Psychiatric: Patient denies problems with mood disturbance. No problems with anxiety. Endocrine: No excessive urination or excessive thirst. Dermatologic: Patient denies any rashes or skin changes. Allergies: Coded Allergies: NO KNOWN ALLERGIES (Unverified , 12/13/22) Medications Current Medications Medications Dose Ordered Sig/Suzette Route Start Time Stop Time Status Last Admin Dose Admin Nitroglycerin 0.4 mg Q5MINP PRN SL 07/08/24 16:45 Morphine Sulfate 2 mg Q30M PRN IV 07/08/24 16:45 Oxycodone HCl 10 mg Q8HPRN PRN PO 07/09/24 08:45 Cyclobenzaprine HCl 10 mg TID PO 07/09/24 14:00 07/09/24 14:08 10 MG Gabapentin 300 mg BID PO 07/09/24 22:00 Metoprolol Succinate 50 mg HS PO 07/09/24 22:00 Atorvastatin Calcium 10 mg HS PO 07/09/24 22:00 Patient Own Medication 1 tab DAILY PO 07/10/24 10:00 Magnesium Oxide 400 mg DAILY PO 07/10/24 10:00 Pantoprazole Sodium 40 mg DAILY PO 07/10/24 10:00 Exam Vital Signs Vital Signs Date Time Temp Pulse Resp B/P (MAP) Pulse Ox O2 Delivery O2 Flow Rate FiO2 07/09/24 13:00 97.6 75 20 153/73 (99) 90 97.6 07/09/24 07:30 Nasal Cannula* 1 24 Exam Physical examination as below: General: Awake, alert, comfortable appearing, in no acute distress. HEENT: Head is normocephalic and atraumatic. Pupils are equal, round, and reactive to light. Extraocular muscles are intact. No nasal discharge. Patient has a dressing on the anterior neck due to the recent surgical procedure, no signs of infection or inflammation. She has a drain Neck: Supple with no cervical lymphadenopathy. Heart: Regular rate without murmur, rub, or gallop. Lungs: Equal breath sounds bilaterally with no wheezing, rales, or rhonchi. There is no chest wall tenderness or instability. Abdomen: No external sign of injury. Bowel sounds are present. Abdomen is soft, nontender. No rebound, no guarding, no rigidity. There are no palpable masses. There is no flank pain on exam. Extremities: Strong peripheral pulses. There is no clubbing, no cyanosis, and no edema. Skin: No rash. Neurologic: Cranial nerves II-XII intact without motor, sensory, or cerebellar deficit, no asterixis. Labs/Xrays Labs Test 07/09/24 09:59 07/04/24 10:15 Range/Units Sodium Level 137 # 136-145 mmol/L Potassium Level 4.5 3.5-5.1 mmol/L Chloride Level 102 98-107 mmol/L Carbon Dioxide Level 26 20-31 mmol/L Anion Gap 9 5-15 Blood Urea Nitrogen 19 9-23 mg/dL Creatinine 0.97 0.550-1.02 mg/dL Glomerular Filtration Rate Calc 62 >90 mL/min BUN/Creatinine Ratio 19.6 10.0-20.0 Serum Glucose 132 H 74-106 mg/dL Calcium Level 10.0 8.7-10.4 mg/dL White Blood Count 6.6 4.4-10.8 10^3/uL Red Blood Count 4.41 4.0-5.20 10^6/uL Hemoglobin 14.1 12.2-16.2 g/dL Hematocrit 43.3 36.0-46.0 % Mean Corpuscular Volume 98.2 80.0-100.0 fL Mean Corpuscular Hemoglobin 31.8 28.0-32.0 pg Mean Corpuscular Hemoglobin Concent 32.4 32.0-36.0 g/dL Red Cell Distribution Width 15.3 H 11.8-14.3 % Platelet Count 212 140-450 10^3/uL Mean Platelet Volume 9.1 6.9-10.8 fL Neutrophils (%) (Auto) 46.7 37.0-80.0 % Lymphocytes (%) (Auto) 37.2 10.0-50.0 % Monocytes (%) (Auto) 8.8 0.0-12.0 % Eosinophils (%) (Auto) 6.3 0.0-7.0 % Basophils (%) (Auto) 1.0 0.0-2.0 % Neutrophils # (Auto) 3.1 1.6-8.6 10 ^3/uL Lymphocytes # (Auto) 2.4 0.4-5.4 10 ^3/uL Monocytes # (Auto) 0.6 0-1.3 10 ^3/uL Eosinophils # (Auto) 0.4 0-0.8 10 ^3/uL Basophils # (Auto) 0.1 0-0.2 10 ^3/uL Nucleated Red Blood Cells 0.1 % Prothrombin Time 10.9 9.3-11.8 sec Prothrombin Time INR 1.03 0.9-1.15 Activated Partial Thromboplast Time 26.6 24.5-34.5 SEC Urine Color Light-yellow Yellow Urine Clarity Clear Clear Urine pH 6.5 5.0-9.0 Urine Specific [place] 1.020 1.001-1.035 Urine Protein Negative Negative Urine Ketones Negative Negative Urine Blood Negative Negative /uL Urine Nitrite Negative Negative Urine Bilirubin Negative Negative Urine Urobilinogen Normal Negative mg/dL Urine Leukocyte Esterase 2+ Negative /uL Urine RBC <1 0 - 4 /hpf Urine Microscopic WBC 16 H 0-5 /HPF Urine Squamous Epithelial Cells Few <5 /hpf Urine Bacteria None seen None Seen /hpf Urine Glucose Normal Normal mg/dL Total Bilirubin 0.5 0.2-1.0 mg/dL Aspartate Amino Transferase (AST) 35 13-40 U/L Alanine Aminotransferase (ALT) 44 H 7-40 U/L Alkaline Phosphatase 86 46-116 U/L Total Protein 7.3 5.7-8.2 g/dL Albumin 4.7 3.2-4.8 g/dL Assessment/Plan Assessment/Plan UTI LINDEN due to VMN Cervical spinal stenosis status post cervical spine procedure History of hypertension Obesity Gout Dyslipidemia Plan: Continue Rocephin 1 g IV q.d. Pending urine culture Encourage p.o. fluids Restarted her home medications Patient has had a cervical spine procedure today by Dr. Villalpando, no complications noted Pain medication as needed Advance diet as tolerated Goals of care were discussed for over 30 minutes. FULL CODE. Case was discussed with Dr. Thomas Plan discussed with: Patient, Other (RN) My Orders Orders - WADE LAFLEUR RESIDENT Procedure Category Date Status Time Gabapentin Capsule PHA 07/09/24 In Process (Neurontin Capsule) 22:00 Metoprolol Xl PHA 07/09/24 In Process Succinate (Toprol Xl) 22:00 (Nf) Losartan PHA 07/10/24 In Process Potassium & Hydrochlo 10:00 Magnesium Oxide PHA /07/01 In Process Tablet (Mag-Ox Tablet) 10:00 Pantoprazole Tablet PHA /07/01 In Process (Protonix Tablet) 10:00 Atorvastatin (Lipitor) PHA /06/03 In Process 22:00 Date of Service: Jul 08, 2024 Billing Provider: LORI THOMAS MD Common Visit Codes: 60921-VGJMGGC INP/OBS CARE (HIGH) Secondary Visit Codes: 43019-PHWCGMLZ CARE PLAN 30 MINUTES WADE LAFLEUR RESIDENT Jul 09, 2024 16:40 LORI THOMAS MD Jul 15, 2024 12:09
[2024-07-09] MEDS: cefTRIAXone 1GM/50ML D5W 50 ML IV ONE (20:55)
[2024-07-09] MEDS: GABAPENTIN 300 MG CAP PO SCH (21:52)
[2024-07-09] MEDS: METOPROLOL SUCCINATE XL 50 MG TAB PO SCH (21:53)
[2024-07-09] MEDS: ATORVASTATIN 20 MG TAB PO SCH (21:53)
[2024-07-10] MEDS: oxyCODONE HCL 5MG TAB PO PRN (00:45)
[2024-07-10 01:00] VITALS: BP 142/66; PULSE 80; RESP 18; TEMP 98; O2SAT 92
[2024-07-10 04:49] VITALS: BP 151/74; PULSE 74; RESP 17; TEMP 97.9; O2SAT 89
[2024-07-10 06:42] LABS: Anion Gap 7 (5-15); Carbon Dioxide 29 mmol/L (20-31); Chloride 105 mmol/L (98-107); Sodium 141 mmol/L (136-145)
[2024-07-10 06:43] LABS: Calcium 9.9 mg/dL (8.7-10.4)
[2024-07-10 06:48] LABS: BUN/Creatinine Ratio 21.6 (10.0-20.0); Blood Urea Nitrogen 22 mg/dL (9-23); Glucose 106 mg/dL (74-106)
[2024-07-10 08:00] VITALS: PULSE 67
[2024-07-10 09:00] VITALS: BP 141/57; PULSE 73; RESP 18; TEMP 97.8; O2SAT 90
[2024-07-10] MEDS: cefTRIAXone 1GM/50ML D5W 50 ML IV SCH (09:10)
[2024-07-10] MEDS: MAGNESIUM OXIDE 400 MG TAB PO SCH (09:11)
[2024-07-10] MEDS: PANTOPRAZOLE 40 MG TAB PO SCH (09:11)
[2024-07-10] MEDS ORDERED: CEFP200T15 PO (09:35)
[2024-07-10 09:57] VITALS: BP 151/74; PULSE 74; RESP 17; TEMP 97.9; O2SAT 89
[2024-07-10] MEDS ORDERED: LOSARTAN POTASSIUM PO SCH (10:00)
[2024-07-10] MEDS ORDERED: HYDROCHLO PO SCH (10:00)
--- NOTE | 2024-07-10 10:54 | DVHDSRES ---
Discharge Summary Date of Admission Resident Creating Document: RODRÍGUEZ AYON,WADE RESIDENT Jul 08, 2024 at 16:50 Date of Discharge: Jul 10, 2024 Admitting Diagnosis Cervical radiculopathy Labs/Diagnostic Data: Laboratory Results Test 07/10/24 06:07 07/04/24 10:15 Sodium Level 141 mmol/L (136-145) Potassium Level 4.0 mmol/L (3.5-5.1) Chloride Level 105 mmol/L (98-107) Carbon Dioxide Level 29 mmol/L (20-31) Anion Gap 7 (5-15) Blood Urea Nitrogen 22 mg/dL (9-23) Creatinine 1.02 mg/dL (0.550-1.02) Glomerular Filtration Rate Calc 58 mL/min (>90) BUN/Creatinine Ratio 21.6 (10.0-20.0) Serum Glucose 106 mg/dL (74-106) Calcium Level 9.9 mg/dL (8.7-10.4) White Blood Count 6.6 10^3/uL (4.4-10.8) Red Blood Count 4.41 10^6/uL (4.0-5.20) Hemoglobin 14.1 g/dL (12.2-16.2) Hematocrit 43.3 % (36.0-46.0) Mean Corpuscular Volume 98.2 fL (80.0-100.0) Mean Corpuscular Hemoglobin 31.8 pg (28.0-32.0) Mean Corpuscular Hemoglobin Concent 32.4 g/dL (32.0-36.0) Red Cell Distribution Width 15.3 % (11.8-14.3) Platelet Count 212 10^3/uL (140-450) Mean Platelet Volume 9.1 fL (6.9-10.8) Neutrophils (%) (Auto) 46.7 % (37.0-80.0) Lymphocytes (%) (Auto) 37.2 % (10.0-50.0) Monocytes (%) (Auto) 8.8 % (0.0-12.0) Eosinophils (%) (Auto) 6.3 % (0.0-7.0) Basophils (%) (Auto) 1.0 % (0.0-2.0) Neutrophils # (Auto) 3.1 10 ^3/uL (1.6-8.6) Lymphocytes # (Auto) 2.4 10 ^3/uL (0.4-5.4) Monocytes # (Auto) 0.6 10 ^3/uL (0-1.3) Eosinophils # (Auto) 0.4 10 ^3/uL (0-0.8) Basophils # (Auto) 0.1 10 ^3/uL (0-0.2) Nucleated Red Blood Cells 0.1 % Prothrombin Time 10.9 sec (9.3-11.8) Prothrombin Time INR 1.03 (0.9-1.15) Activated Partial Thromboplast Time 26.6 SEC (24.5-34.5) Urine Color Light-yellow (Yellow) Urine Clarity Clear (Clear) Urine pH 6.5 (5.0-9.0) Urine Specific [place] 1.020 (1.001-1.035) Urine Protein Negative (Negative) Urine Ketones Negative (Negative) Urine Blood Negative /uL (Negative) Urine Nitrite Negative (Negative) Urine Bilirubin Negative (Negative) Urine Urobilinogen Normal mg/dL (Negative) Urine Leukocyte Esterase 2+ /uL (Negative) Urine RBC <1 /hpf (0 - 4) Urine Microscopic WBC 16 /HPF (0-5) Urine Squamous Epithelial Cells Few /hpf (<5) Urine Bacteria None seen /hpf (None Seen) Urine Glucose Normal mg/dL (Normal) Total Bilirubin 0.5 mg/dL (0.2-1.0) Aspartate Amino Transferase (AST) 35 U/L (13-40) Alanine Aminotransferase (ALT) 44 U/L (7-40) Alkaline Phosphatase 86 U/L (46-116) Total Protein 7.3 g/dL (5.7-8.2) Albumin 4.7 g/dL (3.2-4.8) Other Laboratory Tests 07/10/24 06:07 07/04/24 10:15 Brief Hx & Hospital Course: This is a 74-year-old female who come in for radicular pain. She has a past medical history relevant for hypertension, gout, dyslipidemia, GERD. SH: Smoke: No. ALCOHOL: none. Drugs: None. Lives: with Family She stated that for the last six months she has been experiencing worsening radicular pain, she states having a history of cervical spinal stenosis with severe radicular pain and progressive neuro deficit. She was seen by Dr. Villalpando whom scheduled her for an elective surgery for her cervical spine. On my initial assessment, patient was seen and examined at bedside. Currently states feeling well, denies any significant shortness of breath, chest pain, abdominal pain, dysuria, nausea, vomiting, diarrhea, constipation, dizziness, lightheadedness. Currently tolerating diet. Patient underwent cervical spine surgery today, she just states having soreness on the anterior neck, she also states having some pain on swallowing. However patient did tolerated the diet well and she was progressed to regular diet. Patient is going to have physical therapy today, and we will continue to monitor her. Patient has had significant clinical improvement since admission, we will continue her on IV antibiotics, kidney function improved, she stated feeling better, she only complain of mild soreness on her anterior neck, otherwise she denied any significant chest pain, shortness of breath, abdominal pain, nausea, vomiting. She is currently tolerating diet, ambulatory. Physical examination as below: General: Awake, alert, comfortable appearing, in no acute distress. HEENT: Head is normocephalic and atraumatic. Pupils are equal, round, and reactive to light. Extraocular muscles are intact. No nasal discharge. Patient has a dressing on the anterior neck due to the recent surgical procedure, no signs of infection or inflammation. She has a drain Neck: Supple with no cervical lymphadenopathy. Heart: Regular rate without murmur, rub, or gallop. Lungs: Equal breath sounds bilaterally with no wheezing, rales, or rhonchi. There is no chest wall tenderness or instability. Abdomen: No external sign of injury. Bowel sounds are present. Abdomen is soft, nontender. No rebound, no guarding, no rigidity. There are no palpable masses. There is no flank pain on exam. Extremities: Strong peripheral pulses. There is no clubbing, no cyanosis, and no edema. Skin: No rash. Neurologic: Cranial nerves II-XII intact without motor, sensory, or cerebellar deficit, no asterixis. Patient will be discharge home, will continue home medications as prescribed. She will continue on cefpodoxime, she will also continue on oxycodone and pain medications as prescribed from Orthopedics . Follow-up with PCP in 1-2 weeks. Patient verbalized understanding and agree with the DC plan, we spent over 30 minutes explaining the plan. Case was discussed with Dr. Sylvester Consults/Reason for consult Orthopedics was consulted for cervical spine surgery Operations or Procedures [place] [address] Ph: [phone] DIAGNOSTIC IMAGING Diagnostic Imaging Report : [id number] Signed PATIENT: ADRIAN SIEGEL ACCT: [id number] UNIT: [id number] : 1950 LOC: [facility] RO[facility] / BED: / AGE / SEX: 74 / F ADM STATUS: [facility] ORDERING PHYSICIAN: VERNON VILLALPANDO MD PROCEDURE(s): CARM1 - C ARM FLUOROSCOPY UP TO 60MIN REASON: C4-7 FUSION ORDER NUMBER(s): [id number], ACCESSION NUMBER(s): [id number] C-ARM FLUOROSCOPY: PROCEDURE: c4-c7 fusion FLUOROSCOPY TIME: 58.8 sec DAP: 24 mgy FINDINGS: Spot intraoperative C arm radiographs demonstrating c4-c7 fusion. IMPRESSION: Please refer to surgical report for detailed findings. ATED BY: KAYLI SHERWOOD MD DICTATED DATE/TIME: 07/08/241447 SIGNED BY: KAYLI SHERWOOD MD SIGNED DATE/TIME: 07/08/241447 CC: [place] [address] Ph: [phone] DIAGNOSTIC IMAGING Diagnostic Imaging Report : [id number] Signed PATIENT: ADRIAN SIEGEL ACCT: [id number] UNIT: [id number] : 1950 LOC: [facility] RO[facility] / BED: / AGE / SEX: 74 / F ADM STATUS: [facility] 32 ORDERING PHYSICIAN: VERNON VILLALPANDO MD PROCEDURE(s): CERV2 - CERVICAL SPINE 3V REASON: C4-7 FUSION ORDER NUMBER(s): [id number], ACCESSION NUMBER(s): [id number] C-ARM FLUOROSCOPY: PROCEDURE: c4-c7 fusion FLUOROSCOPY TIME: 58.8 sec DAP: 24 mgy FINDINGS: Spot intraoperative C arm radiographs demonstrating c4-c7 fusion. IMPRESSION: Please refer to surgical report for detailed findings. ATED BY: KAYLI SHERWOOD MD DICTATED DATE/TIME: 07/08/241447 SIGNED BY: KAYLI SHERWOOD MD SIGNED DATE/TIME: 07/08/241447 CC: Patient: ADRIAN SIEGEL Acct: [id number] : 1950 Loc: [facility] Age/Sex: 74/F Room: / Bed: Attending Phy: VERNON VILLALPANDO MD Operative Report - 2 Report Details Date: 07/08/24 Preop Diagnosis: cervical spinal stenosis/degenerative disc disease with severe radiculopathy Postop Diagnosis: same Surgeon: Vernon Villalpando MD Licensed Practical Nurse Clinic Nurse: Santa Drew NP Anesthesiologist: Hannah Gilliam CRNA Anesthesia: General Consent: The patient was informed of the risks and benefits of the procedure. These include but are not limited to complications of anesthesia, postoperative infection, incomplete relief of symptoms, recurrence of symptoms, damage to blood vessels, nerves and tendons, deep venous thrombosis, pulmonary embolism and possible need for repeat surgery in the future. Name of Procedure Performed see detailed note Procedure Details Procedure Details: Pre Op Diagnosis: Cervical Degenerative Disk Disease most severe at C4/5,6/7, 6/7 and Spinal Stenosis Causing incapacitating neck pain, radiculopathy and progressive neurologic deficit Post Op Diagnosis: Cervical Degenerative Disk Disease most severe at c4/5, 5/6, 6/7 and Spinal Stenosis Causing incapacitating neck pain, radiculopathy and progressive neurologic deficit Procedure: Cervical 4 to 5 anterior cervical discectomy with Cervical 4-5 foraminotomies and facetectomies to decompression the spinal canal and Cervical 5 nerve roots Cervical 5 to 6 anterior cervical discectomy with Cervical 5/6 foraminotomies and facetectomies to decompression the spinal canal and Cervical 6 nerve roots Cervical 6 to 7 anterior cervical discectomy with Cervical 6/7 foraminotomies and facetectomies to decompression the spinal canal and Cervical 7 nerve roots Cervical 4-7 anterior cervical Fusion Cervical 4-7 anterior cervical instrumentation with freestanding cages Cervical 4-5 placement of allograft prosthetic device Cervical 5-6 placement of allograft prosthetic device Cervical 6-7 placement of allograft prosthetic device Surgeon: Vernon Villalpando MD Anesthesia: General Assist: Santa Drew NP Fluids and EBL: see anesthesia note Procedure Note: The patient was seen in the Pre-anesthesia Care Unit and the site of the incision was initialed by me with a felt tipped marker. All questions by the patient were answered to the satisfaction of the patient and the chart was reviewed. The patient was taken to the operating room and placed supine on the [facility] top table. General anesthesia was induced. Neuromonitoring leads were placed. A rolled towel was placed between the shoulder blades to hyperextend out the chest which will allow better exposure of the cervical spine. Halter traction to 10 pounds was placed. The arms were padded and adducted to the patients side making sure all pulses in the hands were present. Tape traction was undertaken on the shoulders to give us better radiographic exposure of the distal cervical spine. A gel-pad was placed under the occiput and 5 degrees of extension was placed on the neck without adverse effects to the patient. The anterior neck was prepped and draped. Pre-operative antibiotics were given 30 minutes prior to the start of the procedure. A c-arm fluoroscope was used to josiah out the incision site. At this time, a time out was taken per usual protocol. Next an incison was made through the skin with a 15 blade scalpel through the subcutaneous tissue down to the platysma. Self-retainers were placed. The platysma was incised along the longitudinal border with a Metzenbaum scissors. Blunt dissection was made through the deep cervical and pre-tracheal fascia taking care to protect the carotid sheath laterally and the Trachea/esophagus medially. The dissection was carried down to the prevertebral fascia. Any crossing vessels were ligated using a vascular clip or coagulated with a bovie. An esophageal retractor was next used to retract the trachea/esophagus and a bent [address] through the anterior annulus of the cervical disk and a lateral C-arm fluoroscopic image was taken to confirm that we were at the correct level. The patient had a large thick neck making the exposure deep and more challenging than average. Next, bovie electrocautery was used to expose the bones of cervical 4,5,6, and 7 and bipolar electrocuatery was used to lift up the Longus Colli and Capitus muscles. Black-Belt Self Retainers were used to retract the longus colli and capitus muscles bilaterally as well as the trachea/esophagus to the right and the carotid sheath to the left. Smooth thin self raining retractors were placed proximally and distally and a needle was placed again in the anterior annulus of the disk and an image taken to confirm the correct level. The bleeding was more excessive than average due tot he requirement to remove bone spurs At this point, an 11 blade scalpel incised the anterior annulus of the first of the 3 levels. Next, straight and curved curettes removed the remainder of the disks all the way down to the posterior longitudinal ligament. Carefully, a Kerison number one rongeur inscised the posterior longitudinal ligament at the lateral end of the cervical 4/5 an 5/6 and 6/7 disks and using a micro, blunt tip nerve hook to separate the posterior longitudinal ligament from the dura, alternating 1 mm and 2 mm Kerison rongeurs removed the posterior longitudinal ligament. Next, Kerison 1mm and 2 mm rongeurs were alternated to get under the uncinate processes and undercut them to perform foraminotomies and factectomies at these levels to decompress the central canal and the cervical 5,6 and 7 nerve roots respectively. Next the c-arm fluoroscope was wheeled into the field and a lateral image was obtained. Increasing size graft trials were used starting at a 5 mm thick size until the proper tension in the disk space and height bahai obtained. Next we placed the free standing inter body devices at feliz of the 3 levels respectively. The sizes were tailored to make sure proper tension was restored in the ligaments without over tensioning. Satisfactory placement was confirmed in the AP and lateral views using a C-arm fluoroscope. Copious irrigation of the wound with sterile saline and all bleeding was controlled before closure initiated. At this point, a 10 Dominican round [address] Drain was place deep to the Platysma muscle and the Platysma was approximated with one interrupted 0-Vicryl suture. The subcutaneous tissue was closed with interrupted 2-0 vicryl sutures and the skin was closed with yunier. Sterile dressings were placed and a cervical collar placed, the patient extubated, transferred to the stretcher and taken to the Recovery Room in unremarkable condition. Other Notes:Please note that the patient had a large fatty layer in the neck making the exposure very deep. There were multiple crossing veins in the pretracheal fascia that needed to be tied off with 2-0 silk. Condition Stable Disposition 2 Still a Patient VERNON VILLALPANDO MD Jul 08, 2024 14:35 DICTATED BY:VERNON VILLALPANDO MD DICTATED DATE/TIME:07/08/24 1435 ELECTRONICALLY SIGNED BY:VERNON VILLALPANDO MD 07/08/24 1435 ELECTRONICALLY CO-SIGNED BY: Condition at Discharge: Stable Final Diagnosis/Problems List UTI LINDEN due to VMN Cervical spinal stenosis status post cervical spine procedure History of hypertension Obesity Gout Dyslipidemia Discharge Disposition: Home Discharge Instruct/Medications Diet: See Comment Diet comment: You may resume your normal eating habits Activity: No Restrictions, As Tolerated Activity comment: Move your neck comfortably from [id number] and up and down as much as tolerated. Follow Up/Referral: Keep your postop appointment at the scheduled time or Call [phone] for a appointment [address] [place] [address], [place] [phone] FU with pcp in 1-2 weeks Medications: Pain medication, and muscle relaxers have been sent to your pharmacy of choice please use them as directed call the office and contact Dr. Gutierrez if you need refills Discharge Statement: "Patient was advised to return to the ER or call 911 if any headaches, dizziness, shortness of breath, chest pain, abdominal pain, bleeding, fevers, or worsening of medical condition. Patient was counseled about treatment plan, medications, possible side effects, patientverbalized understanding. All questions were answered to the best of my ability. This discharge took greater then 30 minutes in planning, reviewing documentation, counseling the patient, and discussing with other team members." ASSESSMENT ASSESSMENT Assessment Postoperative state from cervical spine surgery. Postoperative muscle spasms to the neck. UTI Date of Service: Jul 10, 2024 Billing Provider: LORI TREVIÑO MD Common Visit Codes: 46763-HWM/OBS DISCH DAY >30min WADE LAFLEUR RESIDENT Jul 10, 2024 10:54 MERLIN SYLVESTER DO Jul 11, 2024 10:59 LORI TREVIÑO MD Jul 15, 2024 12:18
== END 2024-07-10 13:17 | disposition home or self-care (01) | DRG 471 ==
LOC: SUR 08:34 → CENTRAL 16:50 → TELE-CENTR 16:59
PROVIDERS: ADMIT Internal Medicine; ATTEND Internal Medicine
PROC: 01N10ZZ Release Cervical Nerve, Open Approach (ICD-10-PCS; 2024-07-08)
PROC: 00NW0ZZ Release Cervical Spinal Cord, Open Approach (ICD-10-PCS; 2024-07-08)
PROC: 0RB30ZZ Excision of Cervical Vertebral Disc, Open Approach (ICD-10-PCS; 2024-07-08)
PROC: 4A11X4G Monitoring of Peripheral Nervous Electrical Activity, Intraoperative, External Approach (ICD-10-PCS; 2024-07-08)
PROC: 0RG20A0 Fusion of 2 or more Cervical Vertebral Joints with Interbody Fusion Device, Anterior Approach, Anterior Column, Open Approach (ICD-10-PCS; principal; 2024-07-08 12:14)
DX: M48.02 Spinal stenosis, cervical region (principal); J96.01 Acute respiratory failure with hypoxia; N17.0 Acute kidney failure with tubular necrosis; N39.0 Urinary tract infection, site not specified; N30.00 Acute cystitis without hematuria; M50.123 Cervical disc disorder at C6-C7 level with radiculopathy; M50.121 Cervical disc disorder at C4-C5 level with radiculopathy; M50.122 Cervical disc disorder at C5-C6 level with radiculopathy; E66.9 Obesity, unspecified; E78.5 Hyperlipidemia, unspecified; I10 Essential (primary) hypertension; E11.9 Type 2 diabetes mellitus without complications; Z79.899 Other long term (current) drug therapy
CPT/HCPCS: 36415; 72040; 76000; 80048; 80053; 81001; 85025; 85610; 85730; 86850; 86900; 86901; 97110; 97116; 97163; 97530; G0378; J0131; J1100; J2405; J2704